=== PATIENT | female | born 1960 ===

== ENCOUNTER → 2018-11-30 15:19 | Outpatient (CLI) | payer OTHER, SELFPAY ==
--- NOTE | 2018-11-30 | DI.US.S_ITS ---
PROCEDURE: US PERIPH VENOUS LOW EXTREM BI INDICATIONS: PAIN IN LEFT KNEE TECHNIQUE: Real-time imaging, as well as color and pulse Doppler interrogation, were performed of the deep veins of both legs from the inguinal ligament to the popliteal fossa. COMPARISON: None. FINDINGS: Right: The common femoral, femoral and popliteal veins are normally compressible, and free of intraluminal thrombus. Color and pulse Doppler demonstrate normal phasic intravascular flow. There is normal augmentation response to distal compression maneuver. Left: The common femoral, femoral and popliteal veins are normally compressible, and free of intraluminal thrombus. Color and pulse Doppler demonstrate normal phasic intravascular flow. There is normal augmentation response to distal compression maneuver. IMPRESSION: No deep venous thrombosis identified within either the left or right lower extremities. Dictated by: Adria SWANN Interpreted: Lia Miller MD on 11/30/2018 at 16:31 Approved by: Lia Miller M.D. on 11/30/2018 at 16:35
== END ==
PROVIDERS: Visit Provider Orthopaedic Surgery
DX: M25.562 Pain in left knee (principal)
CPT/HCPCS: 93970

== ENCOUNTER 2019-08-19 16:55 | Emergency (ER) | payer OTHER, SELFPAY ==
[2019-08-19 16:58] VITALS: BP 140/70; PULSE 67; RESP 18; TEMP 36.5; O2SAT 100; BMI 30.2
--- NOTE | 2019-08-19 17:01 | DI.RAD.S_ITS ---
PROCEDURE: XR CHEST 1V INDICATIONS: chest pain TECHNIQUE: One view of the chest was acquired. COMPARISON: None. FINDINGS: Surgical changes and devices: None. Lungs and pleura: Lungs are clear. No pleural effusions or pneumothorax. Mediastinum: Mediastinal contours appear normal. Heart size is normal. Bones and chest wall: No suspicious bony lesions. Overlying soft tissues appear unremarkable. IMPRESSION: No acute cardiopulmonary pathology. Dictated by: John Celaya M.D. on 08/19/2019 at 17:38 Approved by: John Celaya M.D. on 08/19/2019 at 17:38
[2019-08-19 17:23] LABS: Add Manual Diff / Slide Review NO; Basophils Absolute Auto 0 /uL (0-100); Basophils Percent Auto 0.3 % (0-2); Eosinophils Absolute Auto 100 /uL (0-450); Eosinophils Percent Auto 0.6 % (2-4); Hematocrit 41.2 % (36-46); Hemoglobin 13.8 g/dL (12.0-16.0); Lymphocytes Absolute Auto 1900 /uL (1100-4500); Lymphocytes Percent Auto 21.9 % (25-40); Mean Corpuscular HGB Conc 33.5 % (30-36); Mean Corpuscular Hemoglobin 29.5 PG (26-34); Mean Corpuscular Volume 88.2 fL (80-100); Monocytes Absolute Auto 900 /uL (0-900); Neutrophils Absolute Auto 5800 /uL (1500-7000); Neutrophils Percent Auto 67.2 % (50-75); Platelet Count 261 X10^3/uL (150-400); Red Blood Cell Count 4.67 X10^6/uL (4.0-5.2); White Blood Cell Count 8.7 X10^3/uL (4.5-11.0)
[2019-08-19 17:33] LABS: INR 1.1 (0.9-1.3)
[2019-08-19 17:35] LABS: PTT Partial Thromboplastin Tim 35 SECONDS (26.4-36.2)
[2019-08-19 17:38] LABS: Alanine Aminotransferase 25 IU/L (<35); Albumin 4.5 g/dL (3.5-5.0); Albumin Globulin Ratio 1.1 (1.0-2.8); Alkaline Phosphatase 113 U/L (38-126); Aspartate Aminotransferase 25 IU/L (14-36); BUN Creatinine Ratio 14.7 (6-22); Bilirubin Total 0.4 mg/dL (0.2-1.3); Blood Urea Nitrogen 10 mg/dL (7-17); Calcium 9.3 mg/dL (8.4-10.2); Carbon Dioxide 25 mmol/L (22-32); Chloride 102 mmol/L (98-107); Creatine Kinase 82 U/L (30-135); Estimated Glomerular Filt Rate > 60.0 mL/min (>60); Globulin 4.1 g/dL (1.7-4.1); Glucose 115 mg/dL (70-100); HEMOLYSIS < 15 (0-50); Lipase 96 U/L (23-300); Potassium 3.5 mmol/L (3.4-5.1); Sodium 138 mmol/L (137-145); Total Protein 8.6 g/dL (6.3-8.2)
[2019-08-19 17:50] LABS: Troponin I < 0.012 ng/mL (0.01-0.034)
[2019-08-19 18:19] VITALS: PULSE 70; RESP 23; O2SAT 99
--- NOTE | 2019-08-19 18:21 | ED_ITS ---
HPI - Chest Pain General Chief Complaint: Chest Pain Stated Complaint: CHEST PAIN Time Seen by Provider: 08/19/19 18:21 Source: patient and family Mode of arrival: Ambulatory Limitations: no limitations History of Present Illness HPI narrative: 59F non smoker with minimal medical history presents with family and chief complaint of multiple episodes of sharp chest pain off and on for the past 3 months or so. She denies other symptoms such as dizziness, weakness, lightheadedness or exertional symptoms. She denies recent travel, SOB, cough or hemoptysis or calf pain/swelling. She states her symptoms are worse with a deep breath. She denies injury. She denies exertional symptoms. MD complaint: chest pain Onset (ago): month(s) Duration: intermittent Pain location: left chest Severity: mild Quality: sharp Pain radiation: neck Relieving factors: nothing Exacerbating factors: inspiration Treatments prior to arrival chest pain: none Related Data On Oral Contraceptives: No Previous Rx's Medication Instructions Recorded ketorolac 10 mg PO Q6H PRN #14 tab 08/19/19 Allergies Allergy/AdvReac Type Severity Reaction Status Date / Time No Known Drug Allergies Allergy Verified 08/19/19 16:58 Review of Systems Constitutional Constitutional: Denies chills, Denies fatigue, Denies fever(s), Denies frequent falls, Denies lethargy and Denies weakness Eyes Eyes: Denies change in vision, Denies eye discharge, Denies irritation and Denies loss of vision ENT Ears, Nose, Mouth, and Throat: Denies change in voice, Denies dizziness, Denies neck pain, Denies sore throat and Denies throat swelling Cardiovascular Cardiovascular: Reports chest pain, Denies irregular heart rhythm, Denies lightheadedness, Denies palpitations, Denies dyspnea, Denies dyspnea on exertion and Denies orthopnea Respiratory Respiratory: Denies cough, Reports pain on inspiration, Denies dyspnea, Denies dyspnea on exertion and Denies wheezing Gastrointestinal Gastrointestinal: Denies abdominal pain, Denies change in bowel habits, Denies diarrhea, Denies nausea and Denies vomiting Musculoskeletal Musculoskeletal: Denies neck pain and Denies numbness Integumentary/Breasts Skin/Breast: Denies pruritus, Denies erythema, Denies rash and Denies wounds Neurologic Neurologic: Denies behavioral changes, Denies confusion, Denies dizziness, Denies frequent falls, Denies loss of vision, Denies numbness and Denies weakness Psychiatric Psychiatric: Denies anxiety, Denies behavioral changes, Denies confusion, Denies depression, Denies homicidal ideation and Denies suicidal ideation Endocrine Endocrine: Denies fatigue, Denies flushing and Denies palpitations Hematologic/Lymphatic Hematologic/Lymphatic: Denies easy bruising Allergic/Immunologic Allergic/Immunologic: Denies urticaria, Denies throat swelling and Denies wheezing Patient History Social History Smoking Status: Never smoker Smoking Status: Never smoker alcohol intake frequency: 0-2 drinks per day Substance Use Type: does not use Exam Narrative Exam Narrative: GENERAL: [59] year old patient appears stated age. Well- nourished, well-developed patient, in mild distress. HEAD: Atraumatic. Normocephalic. EYES: Pupils equal round and reactive. Extraocular motions intact. No scleral icterus. No injection or drainage. ENT: Nose without bleeding, purulent drainage. Throat without erythema, tonsillar hypertrophy or exudate. Airway patent. NECK: Trachea midline. Non tender CARDIOVASCULAR: Regular rate and rhythm without murmurs, gallops, or rubs. RESPIRATORY: Clear to auscultation. Breath sounds equal bilaterally. No wheezes, rales, or rhonchi. GASTROINTESTINAL: Abdomen soft, non-tender, nondistended. EXTREMITIES: No edema or joint tenderness. BACK: Nontender without deformity or crepitance. No flank tenderness. NEURO: AOx3. SKIN: No rash or erythema of visible areas Initial Vital Signs Initial Vital Signs: Vital Signs Temperature 97.7 F 08/19/19 16:58 Pulse Rate 67 08/19/19 16:58 Respiratory Rate 18 08/19/19 16:58 Blood Pressure 140/70 08/19/19 16:58 Pulse Oximetry 100 08/19/19 16:58 Course Orders Ordered: ED Orders 08/19/19 17:01 XR chest 1V Stat 08/19/19 17:06 EKG-12 Lead Stat 08/19/19 17:15 Complete Blood Count AUTO DIFF Stat Comprehensive Metabolic Panel Stat D Dimer Stat Lipase Stat Partial Thromboplastin Time Stat Prothrombin Time INR Stat Troponin & CK Cardiac Panel Stat Discontinued Medications Ketorolac Tromethamine (Toradol) 15 mg IV NOW ONE Stop: 08/19/19 18:27 Last Admin: 08/19/19 18:41 Dose: 15 mg Documented by: TAYA Vital Signs Vital signs: Vital Signs - 8 hr 08/19/19 16:58 08/19/19 18:19 08/19/19 18:30 Temperature 97.7 F Pulse Rate 67 70 71 Respiratory Rate 18 23 20 Blood Pressure 140/70 153/69 H Pulse Oximetry 100 99 99 08/19/19 18:31 08/19/19 19:00 08/19/19 19:30 Temperature Pulse Rate 73 75 Respiratory Rate 21 23 Blood Pressure 153/69 H 133/63 107/76 Pulse Oximetry 98 99 MDM - Chest Pain Lab Data Result diagrams: 08/19/19 17:15 08/19/19 17:15 Labs: Lab Results 08/19/19 08/19/19 08/19/19 Range/Units 17:15 17:15 17:15 WBC 8.7 (4.5-11.0) X10^3/uL RBC 4.67 (4.0-5.2) X10^6/uL Hgb 13.8 (12.0-16.0) g/dL Hct 41.2 (36-46) % MCV 88.2 (80-100) fL MCH 29.5 (26-34) PG MCHC 33.5 (30-36) % RDW 13.0 (11.6-14.8) % Plt Count 261 (150-400) X10^3/uL Neut % (Auto) 67.2 (50-75) % Lymph % (Auto) 21.9 L (25-40) % [place] % (Auto) 10.0 (3-14) % Eos % (Auto) 0.6 L (2-4) % Baso % (Auto) 0.3 (0-2) % Neut # (Auto) 5800 (4577-1335) /uL Lymph # (Auto) 1900 (7027-6538) /uL [place] # (Auto) 900 (0-900) /uL Eos # (Auto) 100 (0-450) /uL Baso # (Auto) 0 (0-100) /uL PT 13.0 H (10.1-12.7) SECONDS INR 1.1 (0.9-1.3) APTT 35 (26.4-36.2) SECONDS D-Dimer (<230) ng/mL Sodium 138 (137-145) mmol/L Potassium 3.5 (3.4-5.1) mmol/L Chloride 102 (98-107) mmol/L Carbon Dioxide 25 (22-32) mmol/L BUN 10 (7-17) mg/dL Creatinine 0.68 (0.52-1.04) mg/dL Estimated GFR > 60.0 (>60) mL/min BUN/Creatinine Ratio 14.7 (6-22) Glucose 115 H (70-100) mg/dL Calcium 9.3 (8.4-10.2) mg/dL Total Bilirubin 0.4 (0.2-1.3) mg/dL AST 25 (14-36) IU/L ALT 25 (<35) IU/L Alkaline Phosphatase 113 (38-126) U/L Total Creatine Kinase 82 (30-135) U/L CK-MB (CK-2) TNP CK-MB (CK-2) Rel Index TNP Troponin I < 0.012 (0.01-0.034) ng/mL Total Protein 8.6 H (6.3-8.2) g/dL Albumin 4.5 (3.5-5.0) g/dL Globulin 4.1 (1.7-4.1) g/dL Albumin/Globulin Ratio 1.1 (1.0-2.8) Lipase 96 (23-300) U/L 08/19/19 Range/Units 17:15 WBC (4.5-11.0) X10^3/uL RBC (4.0-5.2) X10^6/uL Hgb (12.0-16.0) g/dL Hct (36-46) % MCV (80-100) fL MCH (26-34) PG MCHC (30-36) % RDW (11.6-14.8) % Plt Count (150-400) X10^3/uL Neut % (Auto) (50-75) % Lymph % (Auto) (25-40) % [place] % (Auto) (3-14) % Eos % (Auto) (2-4) % Baso % (Auto) (0-2) % Neut # (Auto) (0299-0708) /uL Lymph # (Auto) (9620-1019) /uL [place] # (Auto) (0-900) /uL Eos # (Auto) (0-450) /uL Baso # (Auto) (0-100) /uL PT (10.1-12.7) SECONDS INR (0.9-1.3) APTT (26.4-36.2) SECONDS D-Dimer 386 H (<230) ng/mL Sodium (137-145) mmol/L Potassium (3.4-5.1) mmol/L Chloride (98-107) mmol/L Carbon Dioxide (22-32) mmol/L BUN (7-17) mg/dL Creatinine (0.52-1.04) mg/dL Estimated GFR (>60) mL/min BUN/Creatinine Ratio (6-22) Glucose (70-100) mg/dL Calcium (8.4-10.2) mg/dL Total Bilirubin (0.2-1.3) mg/dL AST (14-36) IU/L ALT (<35) IU/L Alkaline Phosphatase (38-126) U/L Total Creatine Kinase (30-135) U/L CK-MB (CK-2) CK-MB (CK-2) Rel Index Troponin I (0.01-0.034) ng/mL Total Protein (6.3-8.2) g/dL Albumin (3.5-5.0) g/dL Globulin (1.7-4.1) g/dL Albumin/Globulin Ratio (1.0-2.8) Lipase (23-300) U/L MDM Narrative Medical decision making narrative: Multiple causes of chest pain considered including SC, PE, pneumothorax, pneumonia, aortic dissection, and pleurisy. Patient reports no radiation, no diaphoresis, no provocation with exertion, and no vomiting Patient's symptoms improved or duration of stay with above-stated therapies. Findings and discharge diagnosis discussed with patient/family followed by verbalization of understanding Return precautions discussed with patient/family whom verbalize understanding. Discharge Plan Departure Patient Disposition: Home Clinical Impression: Atypical chest pain Discharge Date/Time: 08/19/19 19:48 Instructions: DI for Atypical Chest Pain Activity Restrictions/Additional Instructions: *You have been diagnosed with [acute chest wall pain] *What to do: *Take medications as directed *Follow up with your primary care provider in 2-3 days, call for an appoint ment. Let them know you were seen in the Emergency Department and that we ask that you be seen in follow up *Return to ER if you should have any new, worsening or concerning symptoms Prescriptions: New ketorolac 10 mg tablet 10 mg PO Q6H PRN (Reason: pain) Qty: 14 RF: 0 Stand Alone Forms: Work Release Note
[2019-08-19 18:30] VITALS: BP 153/69; PULSE 71; RESP 20; O2SAT 99
[2019-08-19 18:31] VITALS: BP 153/69
[2019-08-19 18:39] LABS: D Dimer 386 ng/mL (<230)
[2019-08-19] MEDS: KETOROLAC 60 MG/2 ML VIAL 15 MG IV (18:41)
[2019-08-19 19:00] VITALS: BP 133/63; PULSE 73; RESP 21; O2SAT 98
[2019-08-19 19:30] VITALS: BP 107/76; PULSE 75; RESP 23; O2SAT 99
== END 2019-08-19 19:48 | disposition home or self-care (01) ==
PROVIDERS: Emergency Medicine; Emergency Provider Emergency Medicine
DX: R07.89 Other chest pain (principal)
CPT/HCPCS: 36415; 71045; 80053; 82550; 83690; 84484; 85025; 85379; 85610; 85730; 93005; 96374; 99284; J1885

== ENCOUNTER 2019-10-26 17:32 | Emergency (ER) | payer OTHER, SELFPAY ==
[2019-10-26] VITALS (7 sets, daily range): BP systolic 134–143; BP diastolic 71–73; PULSE 61–83; RESP 16; TEMP 36.7; O2SAT 97–99; BMI 30.2
[2019-10-26 18:05] LABS: Bacteria Urine Moderate (10-30); Culture Indicated Urine Cult Not Indicated; RBC Urine 0-1/HPF (0-5/HPF); Squamous Epithelial Cell Urine 5-10 /HPF (0-5/HPF); WBC Urine 5-10/HPF (0-5/HPF)
--- NOTE | 2019-10-26 18:31 | ED_ITS ---
HPI - Abdominal Pain General Chief Complaint: Abdominal Pain Stated Complaint: Pain in RT low back Time Seen by Provider: 10/26/19 18:22 Source: patient and family Mode of arrival: Ambulatory Limitations: no limitations History of Present Illness HPI narrative: Patient here with her . is driving. Complaints onset epigastric pain starting this past Monday and now radiating to the right upper quadrant and right flank pain. No nausea or vomiting. No urinary complaints. No hematuria. No diarrhea. Had chills last night. No fever. No cough cold congestion. History of cholecystectomy and appendectomy. No appetite. Sometimes worse with eating. Worse with laying flat. Prefers to sit up. MD complaint: abdominal pain and flank pain Related Data Previous Rx's Medication Instructions Recorded ketorolac 10 mg PO Q6H PRN #14 tab 08/19/19 Allergies Allergy/AdvReac Type Severity Reaction Status Date / Time No Known Drug Allergies Allergy Verified 10/26/19 17:50 Review of Systems Review of Systems Narrative: GENERAL: Complains of chills, denies fatigue, malaise, fever, sweats. HEENT: Denies sinus pain, ear pain, sore throat, difficulty swallowing, dizziness. RESPIRATORY: Denies dyspnea, cough, wheezing, hemoptysis, sputum. CARDIOVASCULAR: Denies chest pain, palpitations, orthopnea, edema, GASTROINTESTINAL: Denies nausea, vomiting, complains of abdominal pain, denies diarrhea, constipation, melena. : Denies dysuria, frequency, incontinence, hematuria, urinary retention. MUSCULOSKELETAL: denies weakness, joint pain, or bony pain SKIN: Denies rash, skin lesions NEUROLOGIC: Denies weakness, headache, numbness, change in speech, confusion, seizures, incoordination. PSYCHIATRIC: No concerning psychosocial issues. ROS Unobtainable: All systems reviewed & are unremarkable except as noted in HPI and below Patient History Social History Smoking Status: Never smoker Smoking Status: Never smoker alcohol intake frequency: 0-2 drinks per day Substance Use Type: does not use Exam Narrative Exam Narrative: GENERAL: patient appears stated age. Well-nourished, well- developed patient, in no distress, not toxic HEAD: Atraumatic. Normocephalic. EYES: Pupils equal round and reactive. Extraocular motions intact. No scleral icterus. No injection or drainage. ENT: Nose without bleeding, purulent drainage. Throat without erythema, tonsillar hypertrophy or exudate. Airway patent. NECK: Trachea midline. Non tender CARDIOVASCULAR: Regular rate and rhythm without murmurs, gallops, or rubs. RESPIRATORY: Clear to auscultation. Breath sounds equal bilaterally. No wheezes, rales, or rhonchi. GASTROINTESTINAL: Abdomen soft, tender to touch epigastric region. Mild tenderness right upper quadrant. Mild CVA tenderness on the right side. Bowel sounds present. No peritoneal signs, nondistended. EXTREMITIES: No edema or joint tenderness. BACK: Nontender without deformity or crepitance. No flank tenderness. NEURO: AOx4. SKIN: No rash or erythema of visible areas PSYCH: Not anxious, is cooperative Initial Vital Signs Initial Vital Signs: Vital Signs Temperature 98.1 F 10/26/19 17:47 Pulse Rate 81 10/26/19 17:47 Respiratory Rate 16 10/26/19 17:47 Blood Pressure 143/71 H 10/26/19 17:47 Pulse Oximetry 98 10/26/19 17:47 Course Orders Ordered: ED Orders 10/26/19 17:36 Urine Microscopic Stat 10/26/19 18:15 Complete Blood Count AUTO DIFF Stat Comprehensive Metabolic Panel Stat Lipase Stat 10/26/19 18:30 CT abdomen pelvis w con Stat 10/26/19 21:44 COVID19 -ED/INPAT/OR/L&D Stat 10/26/19 22:15 COVID19 -ED/INPAT/OR/L&D Stat Discontinued Medications Hydrocodone Bitart/Acetaminophen ([place] 5/325) 1 tab PO NOW ONE Stop: 10/27/19 00:52 Last Admin: 10/27/19 00:56 Dose: 1 tab Documented by: TAYA Morphine Sulfate (Morphine) 4 mg IV NOW ONE Stop: 10/26/19 18:30 Last Admin: 10/26/19 18:49 Dose: 4 mg Documented by: DENA Ondansetron HCl (Zofran) 4 mg IV NOW ONE Stop: 10/26/19 18:30 Last Admin: 10/26/19 18:49 Dose: 4 mg Documented by: DENA Pantoprazole Sodium (Protonix) 40 mg IV NOW ONE Stop: 10/26/19 18:30 Last Admin: 10/26/19 18:49 Dose: 40 mg Documented by: DENA Reevaluation(s) Reevaluation #1: updated patient and results and will need transfer to [facility] Time: 20:07 Reevaluation #2: Patient and do not not want to be transferred to [facility]. They are not wanting to go to that facility. There where the [place] insurance has made decision for them to go there. I implored with patient and to stay. Reviewed with them risk of permanent injury worsening condition. At this time differential includes cancer as well as abscess finding on the CT scan. Patient and awake alert oriented x4. They state they wanted to be discharged home and they will follow-up with family doctor on Monday. I instructed them they are welcomed back any time. Time: 00:52 Consultations Consultation #1: I spoke with radiologist and surgeon, Dr. Mason and Dr. Murphy, best next test would be hepatic protocol MRI. Unable to get that here this weekend at this hospital. Best to transfer to [place] or [place]. Surgeon states at this time not a surgical patient in needs further workup with biopsy Time: 20:08 Consultation #2: As protocol for [facility]. I did speak with Dr. Ma, with [facility], he states patient is to be transferred to [address], he will make arrangements for the bed at [facility]. Time: 21:31 Consultation #3: Dr. Ma called back and states bed will be available around 8:00 a.m. tomorrow morning Time: 21:49 Vital Signs Vital signs: Vital Signs - 8 hr 10/26/19 18:14 10/26/19 21:27 10/26/19 21:30 Pulse Rate 83 61 61 Respiratory Rate Blood Pressure Pulse Oximetry 98 97 97 10/26/19 22:00 10/26/19 22:18 10/26/19 22:19 Pulse Rate 67 Respiratory Rate Blood Pressure 134/73 Pulse Oximetry 98 99 10/27/19 00:55 Pulse Rate 63 Respiratory Rate 18 Blood Pressure 147/69 H Pulse Oximetry 99 MDM - Abdominal Pain Differential Diagnosis Differential diagnosis: Likely abdominal pain, calculus of kidney, diverticulitis, pancreatitis and small bowel obstruction Lab Data Attestation: I reviewed the patient's lab results. Result diagrams: 10/26/19 18:15 10/26/19 18:15 Labs: Lab Results 10/26/19 10/26/19 10/26/19 Range/Units 17:36 18:15 18:15 WBC 8.1 (4.5-11.0) X10^3/uL RBC 4.29 (4.0-5.2) X10^6/uL Hgb 12.8 (12.0-16.0) g/dL Hct 37.1 (36-46) % MCV 86.5 (80-100) fL MCH 29.9 (26-34) PG MCHC 34.6 (30-36) % RDW 13.2 (11.6-14.8) % Plt Count 266 (150-400) X10^3/uL Neut % (Auto) 70.3 (50-75) % Lymph % (Auto) 17.5 L (25-40) % [place] % (Auto) 10.6 (3-14) % Eos % (Auto) 1.1 L (2-4) % Baso % (Auto) 0.5 (0-2) % Neut # (Auto) 5700 (9060-2465) /uL Lymph # (Auto) 1400 (6126-1224) /uL [place] # (Auto) 900 (0-900) /uL Eos # (Auto) 100 (0-450) /uL Baso # (Auto) 0 (0-100) /uL Sodium 136 L (137-145) mmol/L Potassium 3.6 (3.4-5.1) mmol/L Chloride 103 (98-107) mmol/L Carbon Dioxide 24 (22-32) mmol/L BUN 17 (7-17) mg/dL Creatinine 0.64 (0.52-1.04) mg/dL Estimated GFR > 60.0 (>60) mL/min BUN/Creatinine Ratio 26.6 H (6-22) Glucose 121 H (70-100) mg/dL Calcium 8.7 (8.4-10.2) mg/dL Total Bilirubin 0.7 (0.2-1.3) mg/dL AST 65 H (14-36) IU/L ALT 38 H (<35) IU/L Alkaline Phosphatase 128 H (38-126) U/L Total Protein 8.2 (6.3-8.2) g/dL Albumin 4.2 (3.5-5.0) g/dL Globulin 4.0 (1.7-4.1) g/dL Albumin/Globulin Ratio 1.1 (1.0-2.8) Lipase 134 (23-300) U/L Urine RBC 0-1/hpf (0-5/HPF) Urine WBC 5-10/hpf H (0-5/HPF) Ur Squamous Epith Cells 5-10 /hpf H (0-5/HPF) Urine Bacteria Moderate (10-30) H (None) Ur Culture Indicated? Cult not indicated Micro UA Comment COVID-19 PCR (Negative) 10/26/19 10/26/19 Range/Units 21:44 22:15 WBC (4.5-11.0) X10^3/uL RBC (4.0-5.2) X10^6/uL Hgb (12.0-16.0) g/dL Hct (36-46) % MCV (80-100) fL MCH (26-34) PG MCHC (30-36) % RDW (11.6-14.8) % Plt Count (150-400) X10^3/uL Neut % (Auto) (50-75) % Lymph % (Auto) (25-40) % [place] % (Auto) (3-14) % Eos % (Auto) (2-4) % Baso % (Auto) (0-2) % Neut # (Auto) (8747-1682) /uL Lymph # (Auto) (4625-2639) /uL [place] # (Auto) (0-900) /uL Eos # (Auto) (0-450) /uL Baso # (Auto) (0-100) /uL Sodium (137-145) mmol/L Potassium (3.4-5.1) mmol/L Chloride (98-107) mmol/L Carbon Dioxide (22-32) mmol/L BUN (7-17) mg/dL Creatinine (0.52-1.04) mg/dL Estimated GFR (>60) mL/min BUN/Creatinine Ratio (6-22) Glucose (70-100) mg/dL Calcium (8.4-10.2) mg/dL Total Bilirubin (0.2-1.3) mg/dL AST (14-36) IU/L ALT (<35) IU/L Alkaline Phosphatase (38-126) U/L Total Protein (6.3-8.2) g/dL Albumin (3.5-5.0) g/dL Globulin (1.7-4.1) g/dL Albumin/Globulin Ratio (1.0-2.8) Lipase (23-300) U/L Urine RBC (0-5/HPF) Urine WBC (0-5/HPF) Ur Squamous Epith Cells (0-5/HPF) Urine Bacteria (None) Ur Culture Indicated? Micro UA Comment COVID-19 PCR Positive H Negative (Negative) Point of care testing: Urine Dip Bedside Urine Glucose Negative Bedside Urine Bilirubin ++ 2 Bedside Urine Ketone - Negative Urine Specific [place] 1.020 Bedside Urine Occult Blood +/- Bedside Urine pH 6.0 Bedside Urine Protein +/- 15 Bedside Urine Urobilinogen 2+ 4mg Bedside Urine Nitrite - Negative Bedside Urine Leukocytes - Negative Esterase Imaging Data CT scan - abdomen/pelvis: Radiologist's Impression: [place] [address] CT Scan Report Signed Patient: Ab Starkey MMR#: [id number] : 2Acct:[id number] Age/Sex: 59 / FDate of Service: 10/26/19 Loc: ED Accession Number: [id number] Procedure: CT abdomen pelvis w con Ordering Provider: Gautam Key MD PROCEDURE: CT ABDOMEN PELVIS W CON INDICATIONS: IV contrast only/epigastric pain/right flank pain TECHNIQUE: After the administration of intravenous contrast, 5 mm thick sections acquired from the diaphragm to the symphysis. 5 mm coronal and sagittal reformats were acquired. For radiation dose reduction, the following was used: automated exposure control, adjustment of mA and/or kV according to patient size. COMPARISON: None. FINDINGS: Image quality: Excellent. ABDOMEN: Lung bases: Lung bases are clear. Heart size is normal. Liver: In the superior right hepatic lobe there is a heterogeneously attenuating and enhancing mass which measures approximately 8.2 centimeters in maximum axial dimension (series 2, image 20). This appears to have internal debris and/or septations and is ill-defined. There appears to be attenuation of the hepatic and portal veins within and adjacent to the mass. There is small volume free fluid as well as subcapsular edema/hemorrhage adjacent to the mass. Differential considerations include abscess, primary tumor, or metastatic lesion. There has been cholecystectomy and there is pneumobilia, increasing the likelihood of infection. Mild intrahepatic biliary ductal dilatation is likely related to post cholecystectomy reservoir phenomenon. Remaining solid organs: Normal appearance of the pancreas, adrenal glands, kidneys, and spleen. Peritoneum and bowel: There is no abnormally dilated or obviously thickened loop of bowel. No pericolonic or mesenteric inflammatory changes. No mesenteric lymphadenopathy. Nodes and vessels: No threshold enlarged retroperitoneal lymph node by CT size criteria. Nonaneurysmal abdominal aorta. Miscellaneous: No ventral hernias. PELVIS: Genitourinary: Bladder wall thickness is normal. Grossly unremarkable uterus and ovaries. Miscellaneous: No threshold enlarged pelvic or inguinal lymph node. No inguinal hernia. Bones: No suspicious bony lesions. No vertebral body compression fractures. IMPRESSION: Non-specific heterogeneously attenuating and enhancing mass in the right hepatic dome. Findings are favored to represent an abscess given the shaggy mural enhancement and internal debris/septation. Pneumobilia related to prior cholecystectomy and presumably sphincterotomy also increased the likelihood of infection. Nonetheless, metastatic disease or primary liver tumor cannot be strictly excluded. Clinical correlation and perhaps tissue sampling will be needed. Dictated by: Mesfin Mason M.D. on 10/26/2019 at 19:00 Approved by: Mesfin Mason M.D. on 10/26/2019 at 19:06 [facility] Narrative Medical decision making narrative: At time of discharge, I implored with patient that she should be admitted/transferred. She and understand risk of worsening condition, , permanent injury. They refused to stay. Discharge Plan Departure Patient Disposition: Left Against Medical Advice Clinical Impression: Abdominal pain Qualifiers: Abdominal location: right upper quadrant Qualified Code(s): R10.11 - Right upper quadrant pain Discharge Date/Time: 10/27/19 01:16 Activity Restrictions/Additional Instructions: Return immediately if you change your mind to be admitted/transferred to [facility] Prescriptions: No Action ketorolac 10 mg tablet 10 mg PO Q6H PRN (Reason: pain) Qty: 14 RF: 0 Referrals: Miah Kwan MD [Primary Care Provider] - Stand Alone Forms: Against Medical Advice
[2019-10-26 18:37] LABS: Add Manual Diff / Slide Review NO; Basophils Absolute Auto 0 /uL (0-100); Basophils Percent Auto 0.5 % (0-2); Eosinophils Absolute Auto 100 /uL (0-450); Eosinophils Percent Auto 1.1 % (2-4); Hematocrit 37.1 % (36-46); Hemoglobin 12.8 g/dL (12.0-16.0); Lymphocytes Absolute Auto 1400 /uL (1100-4500); Lymphocytes Percent Auto 17.5 % (25-40); Mean Corpuscular HGB Conc 34.6 % (30-36); Mean Corpuscular Hemoglobin 29.9 PG (26-34); Mean Corpuscular Volume 86.5 fL (80-100); Monocytes Absolute Auto 900 /uL (0-900); Monocytes Percent Auto 10.6 % (3-14); Neutrophils Absolute Auto 5700 /uL (1500-7000); Neutrophils Percent Auto 70.3 % (50-75); Platelet Count 266 X10^3/uL (150-400); Red Blood Cell Count 4.29 X10^6/uL (4.0-5.2); Red Cell Distribution Width 13.2 % (11.6-14.8); White Blood Cell Count 8.1 X10^3/uL (4.5-11.0)
[2019-10-26 18:45] LABS: Alanine Aminotransferase 38 IU/L (<35); Albumin 4.2 g/dL (3.5-5.0); Albumin Globulin Ratio 1.1 (1.0-2.8); Alkaline Phosphatase 128 U/L (38-126); Aspartate Aminotransferase 65 IU/L (14-36); BUN Creatinine Ratio 26.6 (6-22); Bilirubin Total 0.7 mg/dL (0.2-1.3); Blood Urea Nitrogen 17 mg/dL (7-17); Calcium 8.7 mg/dL (8.4-10.2); Carbon Dioxide 24 mmol/L (22-32); Chloride 103 mmol/L (98-107); Estimated Glomerular Filt Rate > 60.0 mL/min (>60); Glucose 121 mg/dL (70-100); HEMOLYSIS 47 (0-50); Lipase 134 U/L (23-300); Potassium 3.6 mmol/L (3.4-5.1); Sodium 136 mmol/L (137-145); Total Protein 8.2 g/dL (6.3-8.2)
[2019-10-26] MEDS: ONDANSETRON 4 MG/2 ML INJ IV (18:49)
[2019-10-26] MEDS: PANTOPRAZOLE 40 MG VIAL IV (18:49)
[2019-10-26] MEDS: MORPHINE 4 MG/ML INJ IV (18:49)
[2019-10-26 22:01] LABS: COVID19 -Nasal RAPID POSITIVE (Negative)
[2019-10-26 23:27] LABS: COVID19 -Nasal RAPID Negative (Negative)
[2019-10-27 00:55] VITALS: BP 147/69; PULSE 63; RESP 18; O2SAT 99
[2019-10-27] MEDS: HYDROCODONE/ACET 5/325 TABLET 1 TAB PO (00:56)
--- NOTE | 2019-10-27 01:10 | PC.NURSE ---
Pt and spouse did not want to transfer to [place] and choosing to leave. States I will follow up with my primary care monday. Tried to talk with pt about transfer process and why there was a wait for transfer. Pt still wanted to leave. When presented with AMA and d/c paperwork, pt began to sign, then stopped per spouse request. Spouse states don't sign that. We aren't signing anything. IV d/c'd and pt abulated from ER.
== END 2019-10-27 01:16 | disposition left against medical advice (07) ==
PROVIDERS: Emergency Medicine; Emergency Provider Emergency Medicine; PCP Internal Medicine
DX: R10.11 Right upper quadrant pain (principal)
CPT/HCPCS: 36415; 74177; 80053; 81003; 81015; 83690; 85025; 87635; 96374; 96375; 99284; 99285; C9113; J2270; J2405; Q9967

== ENCOUNTER → 2019-10-27 13:34 | Outpatient (ROUT) | payer OTHER, SELFPAY ==
[2019-10-28 19:07] LABS: COVID19 Sendout Not Detected (Not Detect)
== END ==
PROVIDERS: PCP Internal Medicine; Visit Provider Emergency Medicine
DX: Z20.828 Contact with and (suspected) exposure to other viral communicable diseases (principal)
CPT/HCPCS: 87635

== ENCOUNTER 2020-03-23 14:33 | Emergency (ER) | payer OTHER, SELFPAY ==
[2020-03-23 14:40] VITALS: BP 113/71; PULSE 102; RESP 16; TEMP 37.7; O2SAT 97; BMI 26.4
--- NOTE | 2020-03-23 14:47 | DI.RAD.S_ITS ---
PROCEDURE: XR CHEST 2V INDICATIONS: Fever, cough TECHNIQUE: 2 views of the chest were acquired. COMPARISON: [facility], CR, XR CHEST 1V, 08/19/2019, 16:23. FINDINGS: Surgical changes and devices: None. Lungs and pleura: Low lung volumes are noted. This causes a crowded appearance to the lung markings and limits evaluation. Mild interstitial prominence can be seen. No pleural effusions or pneumothorax. Mediastinum: The cardiac contours are within normal limits. The aorta demonstrates calcification and tortuosity. Bones and chest wall: No suspicious bony abnormalities. Age-appropriate bony degenerative changes are seen. Degenerative Soft tissues appear unremarkable. IMPRESSION: No focal infiltrates are seen. Mild interstitial prominence is seen. Differential diagnosis includes artifact from the low lung volumes, mild pulmonary edema, and atypical infection, including COVID pneumonia. Dictated by: Hira Severino M.D. on 03/23/2020 at 14:24 Approved by: Hira Severino M.D. on 03/23/2020 at 14:25
[2020-03-23 15:09] LABS: COVID19 -Nasal RAPID Negative (Negative)
--- NOTE | 2020-03-23 16:44 | ED_ITS ---
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 She denies any significant work of breathing. She denies any chest pain or abdominal pain. She is nausea but denies any vomiting. She denies runny nose or sore throat. She denies any exposure to persons known or suspected to have COVID. She's had no recent travel. She is not dizzy, weak, or lightheaded. Related Data Previous Rx's Medication Instructions Recorded ketorolac 10 mg PO Q6H PRN #14 tab 08/19/19 doxycycline hyclate 100 mg PO BID #20 tab 03/23/20 Allergies Allergy/AdvReac Type Severity Reaction Status Date / Time No Known Drug Allergies Allergy Verified 10/26/19 17:50 Review of Systems Constitutional Constitutional: Reports chills, Denies fatigue, Reports fever(s), Denies frequent falls, Denies lethargy and Denies weakness Eyes Eyes: Denies change in vision, Denies eye discharge, Denies irritation and Denies loss of vision ENT Ears, Nose, Mouth, and Throat: Denies change in voice, Denies dizziness, Denies neck pain, Denies sore throat and Denies throat swelling Cardiovascular Cardiovascular: Denies chest pain, Denies irregular heart rhythm, Denies lightheadedness, Denies palpitations, Reports dyspnea, Denies dyspnea on exertion and Denies orthopnea Respiratory Respiratory: Reports cough, Reports dyspnea, Denies dyspnea on exertion and Denies wheezing Gastrointestinal Gastrointestinal: Denies abdominal pain, Denies change in bowel habits, Denies diarrhea, Reports nausea and Denies vomiting Musculoskeletal Musculoskeletal: Denies neck pain and Denies numbness Integumentary/Breasts Skin/Breast: Denies pruritus, Denies erythema, Denies rash and Denies wounds Neurologic Neurologic: Denies behavioral changes, Denies confusion, Denies dizziness, Denies frequent falls, Denies loss of vision, Denies numbness and Denies weakness Psychiatric Psychiatric: Denies anxiety, Denies behavioral changes, Denies confusion, Denies depression, Denies homicidal ideation and Denies suicidal ideation Endocrine Endocrine: Denies fatigue, Denies flushing and Denies palpitations Hematologic/Lymphatic Hematologic/Lymphatic: Denies easy bruising Allergic/Immunologic Allergic/Immunologic: Denies urticaria, Denies throat swelling and Denies wheezing Patient History Social History Smoking Status: Never smoker Smoking Status: Never smoker alcohol intake frequency: 0-2 drinks per day Substance Use Type: does not use Exam Narrative Exam Narrative: GENERAL: [59] year old patient appears stated age. Well- nourished, well-developed patient, in mild distress. HEAD: Atraumatic. Normocephalic. EYES: Pupils equal round and reactive. Extraocular motions intact. No scleral icterus. No injection or drainage. ENT: Nose without bleeding, purulent drainage. Throat without erythema, tonsillar hypertrophy or exudate. Airway patent. NECK: Trachea midline. Non tender CARDIOVASCULAR: Regular rate and rhythm without murmurs, gallops, or rubs. RESPIRATORY: Faint crackles noted in bilateral bases, frequent cough noted GASTROINTESTINAL: Abdomen soft, non-tender, nondistended. EXTREMITIES: No edema or joint tenderness. BACK: Nontender without deformity or crepitance. No flank tenderness. NEURO: AOx3. SKIN: No rash or erythema of visible areas Initial Vital Signs Initial Vital Signs: Vital Signs Temperature 99.9 F H 03/23/20 14:40 Pulse Rate 102 H 03/23/20 14:40 Respiratory Rate 16 03/23/20 14:40 Blood Pressure 113/71 03/23/20 14:40 Pulse Oximetry 97 03/23/20 14:40 Course Orders Ordered: ED Orders 03/23/20 14:47 Chest [XR chest 2V] Stat COVID19 Stat 03/23/20 17:01 Basic Metabolic Panel Stat Complete Blood Count AUTO DIFF Stat Lactate (Lactic Acid) Stat NT-proBNP (BNP-Adult 18+) Stat Procalcitonin Stat 03/23/20 17:18 Blood Culture Stat Discontinued Medications Sodium Chloride (Normal Saline 0.9%) 1,000 mls @ 1,000 mls/hr IV BOLUS ONE Stop: 03/23/20 17:45 Last Infusion: 03/23/20 18:12 Dose: 0 mls/hr Documented by: Admin: 03/23/20 17:14 Dose: 1,000 mls/hr Documented by: CLIVE Vital Signs Vital signs: Vital Signs - 8 hr 03/23/20 14:40 03/23/20 18:00 Temperature 99.9 F H Pulse Rate 102 H 74 Respiratory Rate 16 18 Blood Pressure 113/71 118/72 Pulse Oximetry 97 98 MDM - Fever Lab Data Result diagrams: 03/23/20 17:01 03/23/20 17:01 Labs: Lab Results 03/23/20 03/23/20 03/23/20 Range/Units 14:47 17:01 17:01 WBC 14.8 H (4.5-11.0) X10^3/uL RBC 4.24 (4.0-5.2) X10^6/uL Hgb 12.0 (12.0-16.0) g/dL Hct 36.4 (36-46) % MCV 85.9 (80-100) fL MCH 28.3 (26-34) PG MCHC 32.9 (30-36) % RDW 13.5 (11.6-14.8) % Plt Count 384 (150-400) X10^3/uL Neut % (Auto) 86.8 H (50-75) % Lymph % (Auto) 5.8 L (25-40) % Bates % (Auto) 6.8 (3-14) % Eos % (Auto) 0.1 L (2-4) % Baso % (Auto) 0.5 (0-2) % Neut # (Auto) 09434 H (5215-7703) /uL Lymph # (Auto) 900 L (2881-1396) /uL Bates # (Auto) 1000 H (0-900) /uL Eos # (Auto) 0 (0-450) /uL Baso # (Auto) 100 (0-100) /uL Sodium (137-145) mmol/L Potassium (3.4-5.1) mmol/L Chloride (98-107) mmol/L Carbon Dioxide (22-32) mmol/L BUN (7-17) mg/dL Creatinine (0.52-1.04) mg/dL Estimated GFR (>60) mL/min BUN/Creatinine Ratio (6-22) Glucose (70-100) mg/dL Lactate (0.7-2.1) mmol/L Calcium (8.4-10.2) mg/dL NT-Pro-B Natriuret Pep (<125) pg/mL Procalcitonin 3.75 H (<0.5) ng/mL SARS-CoV-2 (PCR) Negative (Negative) 03/23/20 03/23/20 Range/Units 17:01 17:01 WBC (4.5-11.0) X10^3/uL RBC (4.0-5.2) X10^6/uL Hgb (12.0-16.0) g/dL Hct (36-46) % MCV (80-100) fL MCH (26-34) PG MCHC (30-36) % RDW (11.6-14.8) % Plt Count (150-400) X10^3/uL Neut % (Auto) (50-75) % Lymph % (Auto) (25-40) % Bates % (Auto) (3-14) % Eos % (Auto) (2-4) % Baso % (Auto) (0-2) % Neut # (Auto) (1381-6924) /uL Lymph # (Auto) (7091-7898) /uL Bates # (Auto) (0-900) /uL Eos # (Auto) (0-450) /uL Baso # (Auto) (0-100) /uL Sodium 132 L (137-145) mmol/L Potassium 4.1 (3.4-5.1) mmol/L Chloride 99 (98-107) mmol/L Carbon Dioxide 27 (22-32) mmol/L BUN 11 (7-17) mg/dL Creatinine 0.87 (0.52-1.04) mg/dL Estimated GFR > 60.0 (>60) mL/min BUN/Creatinine Ratio 12.6 (6-22) Glucose 116 H (70-100) mg/dL Lactate 1.1 (0.7-2.1) mmol/L Calcium 8.7 (8.4-10.2) mg/dL NT-Pro-B Natriuret Pep 361 H (<125) pg/mL Procalcitonin (<0.5) ng/mL SARS-CoV-2 (PCR) (Negative) Imaging Data Chest x-ray: Radiologist's Impression: [place] [id number] [place] [id number] ReportSigned Patient: Ab Starkey MMR#: [id number]: 1960cct:[id number]/Sex: 59 / FDate of Service: 03/23/20Loc: EDAccession Number: [id number] Procedure: XR chest 2V Ordering Provider: Sid De Dios D.O. PROCEDURE: XR CHEST 2V INDICATIONS: Fever, cough TECHNIQUE: 2 views of the chest were acquired. COMPARISON: [facility], , XR CHEST 1V, 08/19/2019, 16:23. FINDINGS: Surgical changes and devices: None. Lungs and pleura: Low lung volumes are noted. This causes a crowded appearance to the lung markings and limits evaluation. Mild interstitial prominence can be seen. No pleural effusions or pneumothorax. Mediastinum: The cardiac contours are within normal limits. The aorta demonstrates calcification and tortuosity. Bones and chest wall: No suspicious bony abnormalities. Age-appropriate bony degenerative changes are seen. Degenerative Soft tissues appear unremarkable. IMPRESSION: No focal infiltrates are seen. Mild interstitial prominence is seen. Differential diagnosis includes artifact from the low lung volumes, mild pulmonary edema, and atypical infection, including COVID pneumonia. Dictated by: Hira Severino M.D. on 03/23/2020 at 14:24 Approved by: Hira Severino M.D. on 03/23/2020 at 14:25 [facility] Narrative Medical decision making narrative: Vitals and exam very reassuring. Labs, history, xray concerning for pneumonia, perhaps COVID. COVID swab negative. Patient with elevated WBCs, no need for supplemental oxygen. No signs of sepsis. NO significant work of breathing or use of accessory muscles. Return precautions given, questions answered to family apparent satisfaction. Discharge Plan Departure Patient Disposition: Home Clinical Impression: Atypical pneumonia Instructions: DI for Fever (Symptom) -- Adult, DI for Atypical Pneumonia Activity Restrictions/Additional Instructions: *You have been diagnosed with [atypical pneumonia] *What to do: *Take medications as directed: Antibiotics were sent to [facility] at your request *Follow up with your primary care provider in 2-3 days, call for an appointment. Let them know you were seen in the Emergency Department and that we ask that you be seen in follow up *Return to ER if you should have any new, worsening or concerning symptoms Prescriptions: New doxycycline hyclate 100 mg tablet 100 mg PO BID Qty: 20 RF: 0 No Action ketorolac 10 mg tablet 10 mg PO Q6H PRN (Reason: pain) Qty: 14 RF: 0 Referrals: Miah Kwan MD [Primary Care Provider] -
[2020-03-23 17:07] LABS: Add Manual Diff / Slide Review NO; Basophils Absolute Auto 100 /uL (0-100); Basophils Percent Auto 0.5 % (0-2); Eosinophils Absolute Auto 0 /uL (0-450); Eosinophils Percent Auto 0.1 % (2-4); Hematocrit 36.4 % (36-46); Lymphocytes Absolute Auto 900 /uL (1100-4500); Lymphocytes Percent Auto 5.8 % (25-40); Mean Corpuscular HGB Conc 32.9 % (30-36); Mean Corpuscular Hemoglobin 28.3 PG (26-34); Mean Corpuscular Volume 85.9 fL (80-100); Monocytes Absolute Auto 1000 /uL (0-900); Monocytes Percent Auto 6.8 % (3-14); Neutrophils Absolute Auto 12900 /uL (1500-7000); Neutrophils Percent Auto 86.8 % (50-75); Platelet Count 384 X10^3/uL (150-400); Red Blood Cell Count 4.24 X10^6/uL (4.0-5.2); Red Cell Distribution Width 13.5 % (11.6-14.8); White Blood Cell Count 14.8 X10^3/uL (4.5-11.0)
[2020-03-23] MEDS: SODIUM CHLORIDE 0.9% 1,000 ML 1000 ML IV (17:14)
[2020-03-23 17:18] LABS: Lactate (Lactic Acid) 1.1 mmol/L (0.7-2.1)
[2020-03-23 17:19] LABS: BUN Creatinine Ratio 12.6 (6-22); Blood Urea Nitrogen 11 mg/dL (7-17); Calcium 8.7 mg/dL (8.4-10.2); Carbon Dioxide 27 mmol/L (22-32); Chloride 99 mmol/L (98-107); Estimated Glomerular Filt Rate > 60.0 mL/min (>60); Glucose 116 mg/dL (70-100); HEMOLYSIS < 15 (0-50); Potassium 4.1 mmol/L (3.4-5.1); Sodium 132 mmol/L (137-145)
[2020-03-23 17:28] LABS: NT-proBNP (BNP-Adult 18+) 361 pg/mL (<125)
[2020-03-23 17:37] LABS: Procalcitonin 3.75 ng/mL (<0.5)
[2020-03-23 18:00] VITALS: BP 118/72; PULSE 74; RESP 18; O2SAT 98
[2020-03-26 12:00] LABS: Enterococcus species Not Detected (Not Detect); Listeria monocytogenes Not Detected (Not Detect); Staphylococcus species Not Detected (Not Detect)
[2020-03-26 12:01] LABS: Acinetobacter baumannii Not Detected (Not Detect); Candida albicans Not Detected (Not Detect); Candida glabrata Not Detected (Not Detect); Candida krusei Not Detected (Not Detect); Candida parapsilosis Not Detected (Not Detect); Candida tropicalis Not Detected (Not Detect); E. coli Not Detected (Not Detect); Enterobacter cloacae complex Not Detected (Not Detect); Enterobacteriaceae species Not Detected (Not Detect); Haemophilus influenzae Not Detected (Not Detect); Neisseria meningitidis Not Detected (Not Detect); Proteus species Not Detected (Not Detect); Pseudomonas aeruginosa Not Detected (Not Detect); Serratia marcescens Not Detected (Not Detect); Streptococcus agalactiae (Gr B Not Detected (Not Detect); Streptococcus pneumonia Not Detected (Not Detect); Streptococcus pyogenes (Gr A) Not Detected (Not Detect); Streptococcus species Not Detected (Not Detect)
== END 2020-03-23 18:21 | disposition home or self-care (01) ==
PROVIDERS: Emergency Provider Emergency Medicine; PCP Internal Medicine
DX: J18.9 Pneumonia, unspecified organism (principal); R50.9 Fever, unspecified; R05 Cough; Z20.822 Contact with and (suspected) exposure to COVID-19
CPT/HCPCS: 36415; 71046; 80048; 83605; 83880; 84145; 85025; 87040; 87150; 87205; 87635; 93005; 93010; 96360; 99283; 99284; C9803

== ENCOUNTER → 2020-04-10 13:40 | Outpatient (CLI) | payer OTHER, SELFPAY ==
--- NOTE | 2020-04-10 | DI.RAD.S_ITS ---
PROCEDURE: XR CHEST 2V INDICATIONS: Encounter for preprocedural laboratory examination TECHNIQUE: 2 views of the chest were acquired. COMPARISON: [facility], CR, XR CHEST 2V, 03/23/2020, 14:54. [facility], CR, XR CHEST 1V, 08/19/2019, 16:23. FINDINGS: Surgical changes and devices: None. Lungs and pleura: Lungs are clear. No pleural effusions or pneumothorax. Mediastinum: Mediastinal contours are normal. Heart size is normal. Bones and chest wall: No suspicious bony abnormalities. Soft tissues appear unremarkable. IMPRESSION: Normal for age. Dictated by: Ubaldo Jackson M.D. on 04/10/2020 at 14:49 Approved by: Ubaldo Jackson M.D. on 04/10/2020 at 14:49
== END ==
PROVIDERS: PCP Family Medicine; Referring Provider Anesthesiology; Visit Provider Anesthesiology
DX: Z01.812 Encounter for preprocedural laboratory examination (principal)
CPT/HCPCS: 71046

== ENCOUNTER → 2021-02-25 14:30 | Outpatient (CLI) | payer OTHER, SELFPAY ==
--- NOTE | 2021-02-25 14:32 | DI.CT.S_ITS ---
PROCEDURE: CT ABDOMEN WO/W CON INDICATIONS: liver mass TECHNIQUE: 4 phase scanning was performed. Non-contrast 5 mm axial sections acquired from the diaphragm to the iliac crests. Following the administration of intravenous contrast, 5 mm thick arterial-phase, portal venous-phase, and 5-minute delayed phase images were acquired through the liver. 5 mm thick coronal and sagittal reformats were performed. For radiation dose reduction, the following was used: automated exposure control, adjustment of mA and/or kV according to patient size. COMPARISON: [facility], CT, CT ABDOMEN PELVIS W CON, 10/26/2019, 18:47. FINDINGS: Image quality: Excellent. Lung bases: Lung bases are clear. Heart size is normal. Liver: Diffuse left lobe enlargement. Moderate diffuse steatosis. Interval partial right hepatectomy along the posterior margin with clearance of the previous heterogeneous enhancing area in segments and VII. There are no new liver lesions. Along the posterior retroperitoneal wall behind the right kidney, there is a 2.5 x 2.1 cm lenticular soft tissue mass extending through the retroperitoneal surface, minimally decreased in size compared to the prior study. There is mild mass effect on the right kidney. Other solid organs: Gallbladder is absent.. Biliary system is non dilated. Pancreas is normal in morphology. Spleen is normal in size and enhancement. No adrenal nodules. Both kidneys demonstrate normal size and enhancement, without hydronephrosis or nephrolithiasis. Nodes and vessels: No retroperitoneal or mesenteric adenopathy by size criteria. Aorta and inferior vena cava are normal in size. Bowel and peritoneum: Unenhanced bowel loops are normal in caliber. No free fluid or air. Bones: No suspicious bony lesions. No vertebral body compression fractures. Miscellaneous: No ventral hernias. IMPRESSION: 1. There is been surgical resolution of heterogeneous enhancing posterior right lobe liver lesion. 2. The remaining liver demonstrates steatosis and left lobe enlargement. 3. There is a residual right retroperitoneal soft tissue mass/phlegmon/resolving hematoma, slightly smaller compared to prior. Dictated by: Vickie Manning M.D. on 02/25/2021 at 16:37 Approved by: Vickie Manning M.D. on 02/25/2021 at 19:25
== END ==
PROVIDERS: PCP Family Medicine; Referring Provider Family Medicine; Visit Provider Family Medicine
DX: K76.89 Other specified diseases of liver (principal)
CPT/HCPCS: 74170; Q9967

== ENCOUNTER → 2021-04-04 14:57 | Outpatient (CLI) | payer OTHER, SELFPAY ==
--- NOTE | 2021-04-04 14:59 | DI.MRI.S_ITS ---
PROCEDURE: MR HEAD/BRAIN WO CON INDICATIONS: Other headache syndrome TECHNIQUE: Non-contrast axial T1 spin echo, axial T2 fast spin echo, sagittal and axial FLAIR, coronal T2 fast spin echo, axial gradient echo, axial diffusion and ADC through the brain. COMPARISON: None. FINDINGS: Image quality: Excellent. CSF spaces: Ventricles appear symmetric in size and shape. Basal cisterns are patent. No extra-axial fluid collections. Brain: No intracranial bleeds or mass effects. There is mild cerebral volume loss for age. There are mild periventricular and deep white matter chronic small vessel ischemic changes. Brainstem appears normal. Diffusion-weighted images show no acute ischemic insults. No chronic ischemic insults. Normal intravascular flow voids are present. Skull and face: Calvarial bone marrow is normal in signal. Orbits are normal. Sinuses: Sinuses and mastoids are clear. IMPRESSION: 1. No acute intracranial disease process. 2. No abnormal intracranial mass or mass effect. 3. No areas of acute or chronic infarction. 4. Mild, diffuse cerebral volume loss. 5. Mild periventricular and subcortical white matter chronic microvascular ischemic change. Dictated by: Teetee Yeager MD, PhD on 04/05/2021 at 9:57 Approved by: Teetee Yeager MD, PhD on 04/05/2021 at 10:00
== END ==
LOC: MRI 14:58
PROVIDERS: PCP Family Medicine; Referring Provider Family Medicine; Visit Provider Family Medicine
DX: G44.89 Other headache syndrome (principal)
CPT/HCPCS: 70551

== ENCOUNTER → 2021-11-27 15:27 | Outpatient (CLI) | payer OTHER, SELFPAY ==
--- NOTE | 2021-11-27 15:43 | DI.MRI.S_ITS ---
PROCEDURE: MR LUMBAR SPINE WO CON INDICATIONS: Low Back Pain TECHNIQUE: Noncontrast sagittal T1 spin echo and T2 fast echo, sagittal STIR, and T2 fast spin echo through the lumbar spine. In cases with scoliosis, additional coronal T2 fast spin echo may be performed. COMPARISON: [facility], CT, CT ABDOMEN PELVIS W CON, 10/26/2019, 18:47. [facility], CT, CT ABDOMEN WO/W CON, 02/25/2021, 14:36. FINDINGS: Image quality: This examination is limited by involuntary motion artifact. Alignment and Curvature: There is normal bony alignment. Bone Marrow: Marrow is of normal overall signal. No acute vertebral body compression fractures. Spinal Cord: Conus medullaris terminates at the L1 level. Visualized cord demonstrates normal signal and size. Paraspinous Soft Tissues: There is a nodule seen within the deep aspect of the abdominal wall on the right, as on series 5, image 5 that measures 2.9 x 2.3 cm in greatest axial dimension. T12-L1: Mild loss of disc height is seen. Loss of disc signal is seen. Mild generalized disc bulge is seen. There is a superimposed central disc protrusion. There is moderate left-sided and no significant right-sided neural foraminal narrowing. Mild central canal narrowing is seen. L1-L2: Mild loss of disc height is seen. The disc signal is relatively well preserved. Mild generalized disc bulge is seen. No significant neural foraminal or central canal narrowing can be seen. L2-L3: The disc height is well-preserved. The disc signal is relatively well preserved at this level. Mild to moderate disc bulge is seen, with a central disc protrusion. Mild facet joint hypertrophy is seen. There is [id number] right-sided and moderate left-sided neural foraminal narrowing. At least moderate central canal narrowing is seen, as on series 5, image 15. L3-L4: The disc height is well-preserved. The disc signal is relatively well preserved. Moderate generalized disc bulge is seen. There is a superimposed central disc protrusion. There is a focal annular fissure seen posteriorly. Mild facet joint hypertrophy is seen. There is moderate right-sided and minimal left-sided neural foraminal narrowing. Moderate central canal narrowing is seen. L4-L5: The disc height and disc signal are relatively well preserved. At least moderate disc bulge is seen. Mild to moderate facet hypertrophy is seen. Moderate bilateral neural foraminal narrowing is seen. Moderate central canal narrowing is seen. L5-S1: The disc height and disk signal are well-preserved. Mild generalized disc bulge is seen. Mild facet joint hypertrophy is seen. Mild bilateral neural foraminal narrowing is seen. Mild central canal narrowing is seen. IMPRESSION: Multiple levels of degenerative change are seen, including at least moderate central canal narrowing at L2-L3 and moderate central canal narrowing at L3-L4. Within the deep aspect of the right anterior abdominal wall, there is an ovoid nodule seen, which was described on the prior CT scan. Dictated by: Hira Severino M.D. on 11/29/2021 at 17:00 Approved by: Hira Severino M.D. on 11/29/2021 at 17:08
== END ==
PROVIDERS: PCP Family Medicine; Referring Provider Physician Assistant; Visit Provider Physician Assistant
DX: M47.816 Spondylosis without myelopathy or radiculopathy, lumbar region (principal); M47.817 Spondylosis without myelopathy or radiculopathy, lumbosacral region; M79.604 Pain in right leg; M54.59 Other low back pain; M48.061 Spinal stenosis, lumbar region without neurogenic claudication; R19.09 Other intra-abdominal and pelvic swelling, mass and lump
CPT/HCPCS: 72148

== ENCOUNTER → 2022-05-27 15:25 | Outpatient (CLI) | payer OTHER, SELFPAY ==
--- NOTE | 2022-05-27 | DI.MRI.S_ITS ---
BREAST MRI OF BOTH BREASTS: 05/27/2022 CLINICAL: Breast cancer. PROCEDURE: MR BREAST BI WO/W CON INDICATIONS: RIGHT BREAST CANCER TECHNIQUE: The patient was placed prone in a dedicated breast imaging coil. Precontrast axial STIR and 3D FLASH without fat saturation sequences were obtained. Both before and after bolus injection of contrast, sequential 1-minute axial 3D FLASH with fat saturation sequences for 3 time points, with subtraction images and maximum intensity projections (MIP's) generated. Delayed sagittal FLASH images with fat saturation were also obtained. Computer-aided detection, including computer algorithm analysis of MRI image data for lesion detection and characterization, pharmacokinetic analysis, with further physician review for interpretation, was performed. COMPARISON: None. FINDINGS: Image quality: Good There is mild background parenchymal enhancement. Right breast: 2.9 x 2.1 x 1.9 cm spiculated mass with heterogeneous enhancement is seen in the right breast at the 9 o'clock position middle to posterior depth. No other suspicious mass, focus, or non mass enhancement. There is an adjacent biopsy clip. No overtly suspicious axillary lymph nodes in the field of view. An indeterminate prominent right internal mammary node is present measuring 4 mm (6/83). Left breast: Enhancement at the posterior depth 6:00 region appears to track along the periphery of the fibroglandular tissue and is favored to represent background parenchymal enhancement image 18/67. No suspicious mass, non-mass enhancement, or focus otherwise identified. Miscellaneous: No suspicious/significant findings in the partially visualized upper abdomen or anterior mediastinum. IMPRESSION: KNOWN BIOPSY PROVEN MALIGNANCY Right breast spiculated mass is compatible with reported malignancy, as described above. There is a prominent, asymmetric right internal mammary node measuring 4 mm in short axis see reference image 6/83. BIRADS 6 (please note, no prior images or pathologic report is available for radiologist review at this time). BI-RADS 6 classification is based on the reported clinical history. This exam was interpreted at Station ID: [id number]. Electronically Signed By: Margarito Zheng M.D. lc/:05/31/2022 19:26:10 ACR BI-RADS Category 6: Known biopsy proven malignancy [id number]
== END ==
LOC: MRI 15:26
PROVIDERS: PCP Physician Assistant; Referring Provider Surgery; Visit Provider Surgery
DX: C50.911 Malignant neoplasm of unspecified site of right female breast (principal); R59.0 Localized enlarged lymph nodes
CPT/HCPCS: 77049; A9579